=== PATIENT | female | born 1955 | race Caucasian/White ===

== ENCOUNTER 2018-12-20 13:17 | Emergency (ER) | payer OTHER ==
[~2018-12-20] VITALS: Ht 162.6 cm; Wt 63.5 kg
--- NOTE | 2018-12-20 14:01 | NUR ---
PT CAME INTO ER W/ FOR SHOULD AND NECK PAIN 2x WEEKS. PT SAID THAT SHE WOKE UP AND BEGAN HAVING THE SHOULDER PAIN 11/02. AAOX4. NOT IN ANY DISTRESS. NO SOB. WILL CONTINUE TO MONITOR.
[2018-12-20] MEDS ORDERED: HYDROMORPHONE 1 MG/1 ML DISP.SYRIN ONE (14:27)
[2018-12-20] MEDS ORDERED: ONDANSETRON HCL/PF 4 MG/2 ML VIAL ONE (14:27)
[2018-12-20] MEDS ORDERED: HYDROMORPHONE 1 MG/1 ML DISP.SYRIN IV ONE (14:30)
[2018-12-20] MEDS ORDERED: ONDANSETRON HCL/PF - ER 4 MG/2 ML VIAL IV ONE (14:30)
[2018-12-20 16:09] VITALS: BP 148/87
--- NOTE | 2018-12-20 16:09 | NUR ---
IV removed. Catheter intact and site benign. Pressure and 4x4 applied to site. No bleeding noted. Patient discharged to home in stable condition. Written and verbal after care instructions given. Patient verbalizes understanding of instruction.
== END 2018-12-20 16:10 | disposition home or self-care (01) ==
LOC: ER 13:19
DX: M54.12 Radiculopathy, cervical region (principal)
CPT/HCPCS: 93005; 96374; 96375; 99283; J1170; J2405